=== PATIENT | female | born 1975 | race Caucasian/White ===

== ENCOUNTER → 2017-06-06 | Outpatient (CLI) | payer MEDICARE, MEDICAID ==
[~2017-06-06] MED LIST: ALLERGY RELIEF10 M3 PO; B12-METHYL1000 MCG PO; CETIRIZINE HCL10 MG PO; CETIRIZINE10 MG PO; CYCLOBENZAPRINE10 MG PO; Cyclobenzaprine10 MG PO; FENOFIBRATE145 M1 PO; FEOSOL325 MG PO; FLOMAX0.4 MG PO; FOLIC ACID1 MG PO; GLUCOPHAGE1000 MG PO; GLUCOPHAGE500 MG PO; HYDROCODONE BIT1 T11 PO; IBU-8800 MG PO; IMITREX100 MG PO; IMITREX25 MG PO; IRON324 M1 PO; KEPPRA500 MG PO; LEVOXYL0.15 MG PO; LOVAZA1 GM; LOVAZA1 GM PO; Levoxyl0.137 MG PO; MAXALT-MLT10 MG PO; MEDROL DOSEPAK4 MG PO; MELOXICAM15 MG PO; METICORTEN1 MG PO; MILK THISTLE PO; Metformin Hydr500 MG PO; NATURE'S BLEND400 IU PO; OYSTER SHELL CA1 TA3 PO; PERCOCET 325 MG1 TA2 PO; PRISTIQ100 MG PO; PRISTIQ50 MG PO; PROAIR HFA0.09 MG/AC IH; PROAIR HFA8.5 GM INH; PROPRANOLOL ER80 MG PO; SINGULAIR10 M1 PO; SINGULAIR10 MG PO; SYMBICORT1 AE1 INH; TESSALON PERLE200 MG PO; THERA M PO; THERA-M CAPLET1 EAC1 PO; THERA-M1 TA1 PO; TOPAMAX100 M1 PO; TOPAMAX100 MG; TOPAMAX100 MG PO; TRILIPIX45 M1 PO; VIBRAMYCIN100 MG PO; ZOFRAN ODT4 MG PO; [UNRECOGNIZED DRUG - OTHER] PO; [UNRECOGNIZED DRUG - OTHER] PO
== END | disposition home or self-care (01) ==
LOC: US 09:56
DX: K76.0 Fatty (change of) liver, not elsewhere classified (principal); R94.5 Abnormal results of liver function studies; Z90.49 Acquired absence of other specified parts of digestive tract

== ENCOUNTER → 2017-11-23 | Outpatient (CLI) | payer MEDICARE, MEDICAID ==
[2017-11-24 08:08] LABS: HEP B CORE AB TOTAL 006718 Negative (Negative)
[2017-11-24 12:05] LABS: ANTI-SMOOTH MUSCLE ANTIBODY 5 Units (0-19)
== END | disposition home or self-care (01) ==
LOC: LAB 12:34
PROVIDERS: Nurse Practitioner Family
DX: K76.0 Fatty (change of) liver, not elsewhere classified (principal); R79.89 Other specified abnormal findings of blood chemistry; R94.5 Abnormal results of liver function studies

== ENCOUNTER → 2019-03-20 | Day surgery (SDC) | payer MEDICARE ==
[~2019-03-20] VITALS: Ht 165.1 cm; Wt 119.3 kg
[~2019-03-20] MED LIST changes: +BYETTA5 MCG/0.02 SC; +CETIRIZINE HYDR10 MG PO; +FEROSUL325 MG PO; +IBU800 M1 PO; +LEADER NATUR1000 MCG PO; +LEVOTHYROXINE150 MCG PO; +METFORMIN HYD1000 MG PO; +MONTELUKAST SOD10 MG PO; +Motrin,Rufen800 MG PO; +OMEGA-3-ACID ETH1 GM PO
[2019-03-20 08:00] VITALS: BP 104/49
[2019-03-20 10:28] VITALS: BP 117/61
[2019-03-20 10:43] VITALS: BP 115/65
[2019-03-20 11:00] VITALS: BP 111/66
[2019-03-20 11:16] VITALS: BP 120/69
[2019-03-20 11:30] VITALS: BP 118/74
== END | disposition home or self-care (01) ==
LOC: SDC 01-22 12:30
DX: N84.0 Polyp of corpus uteri (principal); D23.9 Other benign neoplasm of skin, unspecified; I10 Essential (primary) hypertension; J45.909 Unspecified asthma, uncomplicated; E66.01 Morbid (severe) obesity due to excess calories; G43.909 Migraine, unspecified, not intractable, without status migrainosus; G40.909 Epilepsy, unspecified, not intractable, without status epilepticus; F32.9 Major depressive disorder, single episode, unspecified; K21.9 Gastro-esophageal reflux disease without esophagitis; E03.9 Hypothyroidism, unspecified; E11.9 Type 2 diabetes mellitus without complications; Z68.41 Body mass index [BMI] 40.0-44.9, adult; Z88.0 Allergy status to penicillin; Z88.5 Allergy status to narcotic agent; Z91.040 Latex allergy status; Z90.49 Acquired absence of other specified parts of digestive tract; Z90.710 Acquired absence of both cervix and uterus; Z98.890 Other specified postprocedural states; Z72.89 Other problems related to lifestyle; Z79.899 Other long term (current) drug therapy; Z86.73 Personal history of transient ischemic attack (TIA), and cerebral infarction without residual deficits; Z83.3 Family history of diabetes mellitus; Z82.49 Family history of ischemic heart disease and other diseases of the circulatory system; Z82.3 Family history of stroke

== ENCOUNTER → 2019-05-21 | Outpatient (CLI) | payer MEDICARE | END | disposition home or self-care (01) | LOC: ORTHO 01:26 | DX: M25.511 Pain in right shoulder (principal); R20.0 Anesthesia of skin ==

== ENCOUNTER → 2019-06-13 | Outpatient (CLI) | payer MEDICARE | END | disposition home or self-care (01) | LOC: MRI 06-04 11:00 → LAB 12:37 → MRI 12:37 | DX: M75.51 Bursitis of right shoulder (principal); M75.101 Unspecified rotator cuff tear or rupture of right shoulder, not specified as traumatic; E22.9 Hyperfunction of pituitary gland, unspecified; E53.8 Deficiency of other specified B group vitamins; R73.02 Impaired glucose tolerance (oral); E03.9 Hypothyroidism, unspecified; F41.9 Anxiety disorder, unspecified ==

== ENCOUNTER → 2019-06-18 | Outpatient (CLI) | payer MEDICARE | END | disposition home or self-care (01) | LOC: MRI 08:00 | DX: E22.9 Hyperfunction of pituitary gland, unspecified (principal); R51 Headache; I10 Essential (primary) hypertension; E11.9 Type 2 diabetes mellitus without complications ==

== ENCOUNTER 2020-02-11 15:52 | Emergency (ER) | payer MEDICARE ==
[~2020-02-11] VITALS: Ht 167.6 cm; Wt 131.5 kg
[2020-02-11 16:22] VITALS: BP 100/79
== END 2020-02-11 19:04 | disposition home or self-care (01) ==
LOC: ED 15:52
DX: S49.92XA Unspecified injury of left shoulder and upper arm, initial encounter (principal); M54.2 Cervicalgia; I10 Essential (primary) hypertension; E11.9 Type 2 diabetes mellitus without complications; K21.9 Gastro-esophageal reflux disease without esophagitis; G40.909 Epilepsy, unspecified, not intractable, without status epilepticus; E03.9 Hypothyroidism, unspecified; J45.909 Unspecified asthma, uncomplicated; G43.909 Migraine, unspecified, not intractable, without status migrainosus; F32.9 Major depressive disorder, single episode, unspecified; Z86.73 Personal history of transient ischemic attack (TIA), and cerebral infarction without residual deficits; Z88.0 Allergy status to penicillin; Z91.048 Other nonmedicinal substance allergy status; Z88.1 Allergy status to other antibiotic agents; Z91.040 Latex allergy status; Z88.5 Allergy status to narcotic agent; Z88.8 Allergy status to other drugs, medicaments and biological substances; Z79.899 Other long term (current) drug therapy; Z90.49 Acquired absence of other specified parts of digestive tract; Y04.2XXA Assault by strike against or bumped into by another person, initial encounter; Y93.89 Activity, other specified; Y92.89 Other specified places as the place of occurrence of the external cause; Y99.8 Other external cause status

== ENCOUNTER → 2020-03-19 | Outpatient (CLI) | payer MEDICARE | END | disposition home or self-care (01) | LOC: MRI 11:00 | DX: M54.12 Radiculopathy, cervical region (principal); M75.41 Impingement syndrome of right shoulder; M25.511 Pain in right shoulder ==

== ENCOUNTER → 2020-10-27 | Outpatient (CLI) | payer MEDICARE | END | disposition home or self-care (01) | LOC: MAMMO 14:29 | PROVIDERS: ATTEND Nurse Practitioner Family | DX: Z12.31 Encounter for screening mammogram for malignant neoplasm of breast (principal); N63.10 Unspecified lump in the right breast, unspecified quadrant; N64.89 Other specified disorders of breast ==

== ENCOUNTER 2021-09-08 00:04 | Emergency (ER) | payer MEDICARE ==
[~2021-09-08] VITALS: Ht 167.6 cm; Wt 125.6 kg
[2021-09-08 00:09] VITALS: BP 139/65
[2021-09-08 01:37] LABS: BILIRUBIN Negative (Negative); BLOOD Negative (Negative); CLARITY Cloudy (Clear); COLOR Yellow (Yellow); GLUCOSE Negative (Negative); KETONE Negative (Negative); LEUKO ESTERASE 1+ (Negative); NITRITE Negative (Negative); PH 7.5 (4.5-8.0)
[2021-09-08 01:48] LABS: EOS # 0.2 10*3/uL (0.0-0.4); EOS % 2.1 % (1.0-4.0); HEMATOCRIT 36.7 % (37.0-47.0); LYMPH # 2.7 10*3/uL (1.3-4.4); LYMPH % 30.6 % (27.0-41.0); MEAN CELL VOLUME 87.2 fl (81.0-99.0); MEAN CORPUSCULAR HGB 27.8 pg (27.0-31.0); MEAN CORPUSCULAR HGB CONC 31.9 g/dl (33.0-37.0); MEAN PLATELET VOLUME 10.2 fl (9.6-12.3); MONO # 0.6 10*3/uL (0.1-1.0); NEUT # 5.3 10*3/uL (2.3-7.9); NEUT % 59.2 % (47.0-73.0); NUCLEATED RED BLOOD CELL 0.2 % (0.0-0.0); PLATELET COUNT AUTOMATED 231 10*3/uL (130-400); RED BLOOD COUNT 4.21 10*6/uL (4.10-5.10); RED CELL DISTRI WIDTH 14.9 % (0-14.5); WHITE BLOOD COUNT 8.9 10*3/uL (4.8-10.8)
[2021-09-08 01:57] LABS: BACTERIA 1+
[2021-09-08 02:04] LABS: ALBUMIN 3.8 gm/dl (3.1-4.5); ALKALINE PHOSPHATASE 86 U/L (45-117); BUN 16 mg/dl (7-24); CHLORIDE 109 mmol/L (98-107); CREATININE 1.01 mg/dL (0.55-1.02); POTASSIUM 3.7 mmol/L (3.5-5.1); SGOT/AST 43 IU/L (3-35); SGPT/ALT 50 U/L (12-78); SODIUM 142 mmol/L (136-145); TOTAL PROTEIN 7.6 gm/dL (6.4-8.2)
[2021-09-08] MEDS ORDERED: MACROBID100 M1 PO ×3 (05:57→06:19)
[2021-09-09] MEDS ORDERED: LEVOFLOXACIN750 M2 PO (10:27)
== END 2021-09-08 06:17 | disposition home or self-care (01) ==
LOC: ED 00:04
PROVIDERS: Emergency Medicine
DX: N39.0 Urinary tract infection, site not specified (principal); Z88.0 Allergy status to penicillin; Z88.1 Allergy status to other antibiotic agents; Z88.8 Allergy status to other drugs, medicaments and biological substances; Z91.040 Latex allergy status; Z79.899 Other long term (current) drug therapy

== ENCOUNTER 2021-09-09 08:11 | Emergency (ER) | payer MEDICARE ==
[~2021-09-09 08:11] MED LIST changes: +MACROBID100 M1 PO
[2021-09-09 08:15] VITALS: BP 137/76
[2021-09-09 08:44] LABS: BASO % 0.1 % (0.0-1.0); EOS # 0.3 10*3/uL (0.0-0.4); EOS % 3.9 % (1.0-4.0); HEMATOCRIT 35.9 % (37.0-47.0); LYMPH # 1.5 10*3/uL (1.3-4.4); LYMPH % 17.8 % (27.0-41.0); MEAN CELL VOLUME 87.3 fl (81.0-99.0); MEAN CORPUSCULAR HGB 27.3 pg (27.0-31.0); MEAN CORPUSCULAR HGB CONC 31.2 g/dl (33.0-37.0); MONO # 0.8 10*3/uL (0.1-1.0); NEUT # 5.9 10*3/uL (2.3-7.9); NEUT % 67.9 % (47.0-73.0); PLATELET COUNT AUTOMATED 192 10*3/uL (130-400); RED BLOOD COUNT 4.11 10*6/uL (4.10-5.10); RED CELL DISTRI WIDTH 15.2 % (0-14.5); WHITE BLOOD COUNT 8.6 10*3/uL (4.8-10.8)
[2021-09-09 08:59] LABS: ALBUMIN 3.6 gm/dl (3.1-4.5); ALKALINE PHOSPHATASE 85 U/L (45-117); BUN 13 mg/dl (7-24); CHLORIDE 110 mmol/L (98-107); CREATININE 0.89 mg/dL (0.55-1.02); POTASSIUM 3.6 mmol/L (3.5-5.1); SGOT/AST 74 IU/L (3-35); SGPT/ALT 55 U/L (12-78); SODIUM 140 mmol/L (136-145); TOTAL PROTEIN 7.5 gm/dL (6.4-8.2)
[2021-09-09 09:09] LABS: BILIRUBIN Negative (Negative); BLOOD Negative (Negative); CLARITY Clear (Clear); COLOR Yellow (Yellow); GLUCOSE Negative (Negative); KETONE Negative (Negative); LEUKO ESTERASE Trace (Negative); NITRITE Negative (Negative); PH 6.5 (4.5-8.0)
[2021-09-09 09:36] LABS: BACTERIA 3+
[2021-09-09] MEDS ORDERED: LEVOFLOXACIN750 M2 PO (10:27)
== END 2021-09-09 10:36 | disposition home or self-care (01) ==
LOC: ED 08:11
PROVIDERS: Student in an Organized Health Care Education/Training Program
DX: N39.0 Urinary tract infection, site not specified (principal); N23 Unspecified renal colic; Z88.0 Allergy status to penicillin; Z88.1 Allergy status to other antibiotic agents; Z91.040 Latex allergy status; Z88.8 Allergy status to other drugs, medicaments and biological substances; Z79.899 Other long term (current) drug therapy

== ENCOUNTER 2022-05-20 11:56 | Inpatient (IN) | payer OTHER ==
[~2022-05-20] VITALS: Ht 167.6 cm; Wt 119.8 kg
[~2022-05-20 11:56] MED LIST changes: +LEVOFLOXACIN750 M2 PO
[2022-05-20 12:05] VITALS: BP 111/69
[2022-05-20 12:36] LABS: BASO % 0.2 % (0.0-1.0); EOS # 0.2 10*3/uL (0.0-0.4); EOS % 2.4 % (1.0-4.0); HEMATOCRIT 34.9 % (37.0-47.0); LYMPH # 2.8 10*3/uL (1.3-4.4); LYMPH % 30.1 % (27.0-41.0); MEAN CELL VOLUME 84.1 fl (81.0-99.0); MEAN CORPUSCULAR HGB CONC 32.1 g/dl (33.0-37.0); MEAN PLATELET VOLUME 10.1 fl (9.6-12.3); MONO # 0.7 10*3/uL (0.1-1.0); MONO % 7.7 % (3.0-9.0); NEUT # 5.4 10*3/uL (2.3-7.9); NEUT % 57.7 % (47.0-73.0); PLATELET COUNT AUTOMATED 249 10*3/uL (130-400); RED BLOOD COUNT 4.15 10*6/uL (4.10-5.10); RED CELL DISTRI WIDTH 15.2 % (0-14.5); WHITE BLOOD COUNT 9.4 10*3/uL (4.8-10.8)
[2022-05-20 12:53] LABS: ALKALINE PHOSPHATASE 116 U/L (45-117); BUN 18 mg/dl (7-24); CHLORIDE 109 mmol/L (98-107); LIPASE 111 U/L (73-393); POTASSIUM 3.7 mmol/L (3.5-5.1); SGOT/AST 126 IU/L (3-35); SODIUM 141 mmol/L (136-145); TOTAL PROTEIN 7.8 gm/dL (6.4-8.2)
[2022-05-20 12:55] LABS: SGPT/ALT 128 U/L (12-78)
[2022-05-20 17:16] VITALS: BP 113/71
[2022-05-20] MEDS ORDERED: NORTRIPTYLINE H25 M1 PO (17:52)
[2022-05-21] VITALS: BP 128/81
[2022-05-21 05:13] LABS: ALKALINE PHOSPHATASE 96 U/L (45-117); BUN 14 mg/dl (7-24); CHLORIDE 114 mmol/L (98-107); CHOLESTEROL 191 mg/dL (<200); CREATININE 0.76 mg/dL (0.55-1.02); FREE T4 1.39 ng/dl (0.76-1.46); LDL CHOLESTEROL 120 mg/dL (9-159); POTASSIUM 3.7 mmol/L (3.5-5.1); SGOT/AST 66 IU/L (3-35); SGPT/ALT 93 U/L (12-78); SODIUM 143 mmol/L (136-145); TOTAL PROTEIN 6.8 gm/dL (6.4-8.2); TRIGLYCERIDES 233 mg/dl (<150)
[2022-05-21 06:20] LABS: HEMATOCRIT 31.4 % (37.0-47.0); MEAN CELL VOLUME 85.3 fl (81.0-99.0); MEAN CORPUSCULAR HGB 26.9 pg (27.0-31.0); MEAN CORPUSCULAR HGB CONC 31.5 g/dl (33.0-37.0); MEAN PLATELET VOLUME 10.7 fl (9.6-12.3); PLATELET COUNT AUTOMATED 208 10*3/uL (130-400); RED BLOOD COUNT 3.68 10*6/uL (4.10-5.10); RED CELL DISTRI WIDTH 15.3 % (0-14.5); WHITE BLOOD COUNT 6.5 10*3/uL (4.8-10.8)
[2022-05-21 06:27] LABS: MANUAL DIFF REFLEX YES
[2022-05-21 07:08] LABS: TOTAL CELLS COUNTED 100 #CELLS
[2022-05-21 07:09] LABS: OVALOCYTES FEW; PLATELET SUFFICIENCY NORMAL (NORMAL); POLYCHROMASIA SLIGHT
[2022-05-21 07:10] LABS: ROULEAUX SLIGHT
[2022-05-21 08:11] LABS: VITAMIN D, 25-HYDROXY 31.6 ng/mL (30-100)
[2022-05-21 09:00] VITALS: BP 120/75
[2022-05-21 15:52] VITALS: BP 126/93
[2022-05-21 19:19] VITALS: BP 130/86
[2022-05-21 22:34] LABS: BILIRUBIN Negative (Negative); BLOOD Negative (Negative); CLARITY Cloudy (Clear); COLOR Yellow (Yellow); GLUCOSE Negative (Negative); KETONE Negative (Negative); LEUKO ESTERASE Negative (Negative); NITRITE Negative (Negative); SPECIFIC GRAVITY 1.015 (1.001-1.030)
[2022-05-21 22:52] LABS: BACTERIA 1+; CALCIUM OXALATE CRYSTALS 1+; MUCOUS 1+
[2022-05-21 23:02] VITALS: BP 122/65
[2022-05-21 23:30] VITALS: BP 136/86
[2022-05-22] MEDS ORDERED: LEVOTHYROXINE137 MC1 PO (02:46)
[2022-05-22 06:24] LABS: HEMATOCRIT 31.3 % (37.0-47.0); MEAN CELL VOLUME 86.9 fl (81.0-99.0); MEAN CORPUSCULAR HGB 27.2 pg (27.0-31.0); MEAN CORPUSCULAR HGB CONC 31.3 g/dl (33.0-37.0); MEAN PLATELET VOLUME 10.5 fl (9.6-12.3); NUCLEATED RED BLOOD CELL 0.4 % (0.0-0.0); PLATELET COUNT AUTOMATED 197 10*3/uL (130-400); RED CELL DISTRI WIDTH 15.1 % (0-14.5); WHITE BLOOD COUNT 5.6 10*3/uL (4.8-10.8)
[2022-05-22 06:29] LABS: MANUAL DIFF REFLEX YES
[2022-05-22 07:18] LABS: BUN 10 mg/dl (7-24); CHLORIDE 114 mmol/L (98-107); POTASSIUM 3.7 mmol/L (3.5-5.1); SODIUM 144 mmol/L (136-145)
[2022-05-22 07:20] LABS: PLATELET SUFFICIENCY NORMAL (NORMAL); TOTAL CELLS COUNTED 100 #CELLS
[2022-05-22 07:21] LABS: POLYCHROMASIA SLIGHT
[2022-05-22 07:22] LABS: ALKALINE PHOSPHATASE 106 U/L (45-117); CREATININE 0.79 mg/dL (0.55-1.02); SGOT/AST 75 IU/L (3-35); SGPT/ALT 85 U/L (12-78); TOTAL PROTEIN 6.7 gm/dL (6.4-8.2)
[2022-05-22 08:00] VITALS: BP 153/85
[2022-05-22] MEDS ORDERED: LEVOFLOXACIN750 M2 PO (09:41)
[2022-05-22] MEDS ORDERED: BENZONATATE100 M1 PO (09:41)
== END 2022-05-22 11:00 | disposition home or self-care (01) | DRG 871 ==
LOC: ED 11:56 → EDHOLD 17:10 → 4E 05-21 22:41
PROVIDERS: Emergency Medicine; Internal Medicine; ADMIT Internal Medicine; ATTEND Internal Medicine
DX: A41.9 Sepsis, unspecified organism (principal); J18.9 Pneumonia, unspecified organism; F33.9 Major depressive disorder, recurrent, unspecified; Z68.41 Body mass index [BMI] 40.0-44.9, adult; E66.01 Morbid (severe) obesity due to excess calories; R74.01 Elevation of levels of liver transaminase levels; M25.511 Pain in right shoulder; D64.9 Anemia, unspecified; G43.909 Migraine, unspecified, not intractable, without status migrainosus; E03.9 Hypothyroidism, unspecified; G40.909 Epilepsy, unspecified, not intractable, without status epilepticus; I10 Essential (primary) hypertension; R73.03 Prediabetes; R73.9 Hyperglycemia, unspecified; F43.22 Adjustment disorder with anxiety; Z86.16 Personal history of COVID-19; Z83.3 Family history of diabetes mellitus; Z82.49 Family history of ischemic heart disease and other diseases of the circulatory system; Z79.899 Other long term (current) drug therapy